=== PATIENT | male | born 1975 | race Caucasian/White ===

== ENCOUNTER 2018-04-18 17:16 | Emergency (ER) | payer OTHER ==
[2018-04-18 17:28] VITALS: BP 136/87; PULSE 86; TEMP 98.3; BMI 26.6
--- NOTE | 2018-04-18 17:33 | PDOC ---
Rapid Medical Evaluation Chief Complaint: Chest Pain Time Seen by Provider: 04/18/18 17:26 Medical Evaluation: Allergies Allergy/AdvReac Type Severity Reaction Status Date / Time No Known Allergies Allergy Verified 04/18/18 17:29 Vital Signs Temp Pulse Resp BP Pulse Ox 98.3 F 86 18 136/87 100 04/18/18 17:24 04/18/18 17:24 04/18/18 17:24 04/18/18 17:24 04/18/18 17:24 04/18/18 17:30 I have performed a brief in-person evaluation of this patient. The patient presents with a chief complaint of: h/o HTN present to [facility] clinic due to feeling mid-sternum CP yesterday and followed-up in clinic today and clinic did EKG which they believe was abnormal and called EMS. Patient report no symptoms today. Denies SOB, dizziness, light headedness, palpitations , N/V, sweats , numbness or tingling sensation Pertinent physical exam findings: A&O x 3. heart :RRR. lungs CTAB. EKG with NSR I have ordered the following: EKG, CBC, CMP, cardiac profile The patient will proceed to the ED for further evaluation Discharge Disposition - Diagnosis Chest pain Qualifiers: Chest pain type: unspecified Qualified Code(s): R07.9 - Chest pain, unspecified - Discharge Dispostion Condition at time of disposition: Stable - Referrals - Patient Instructions - Post Discharge Activity
[2018-04-18 17:55] LABS: BASO % 0.4 % (0-2.0); EOS % 0.2 % (0-4.5); HEMATOCRIT 45.1 % (35.4-49); HEMOGLOBIN 15.3 GM/dL (11.7-16.9); LYMPH % 25.1 % (8-40); MCH 28.3 pg (25.7-33.7); MEAN CELL VOLUME 83.3 fl (80-96); MEAN PLT VOLUME 8.6 fl (7.5-11.1); NEUT % 66.3 % (42.8-82.8); PLATELET COUNT 242 K/MM3 (134-434); RBC 5.42 M/mm3 (4.00-5.60); RDW 13.4 % (11.9-15.9); WHITE BLOOD COUNT 5.4 K/mm3 (4.0-10.0)
[2018-04-18 18:50] LABS: ALBUMIN 4.3 g/dl (3.4-5.0); ALK PHOS 112 U/L (45-117); ANION GAP 8 MMOL/L (8-16); BILIRUBIN,TOTAL 0.9 mg/dL (0.2-1); BLOOD UREA NITROGEN 13 mg/dL (7-18); CALCIUM 9.1 mg/dL (8.5-10.1); CHLORIDE 101 mmol/L (98-107); CO2 27 mmol/L (21-32); CREATININE 1.2 mg/dL (0.55-1.3); GLUCOSE,RANDOM 94 mg/dL (74-106); POTASSIUM 4.1 mmol/L (3.5-5.1); SGOT/AST 11 U/L (15-37); SGPT/ALT 31 U/L (13-61); SODIUM 136 mmol/L (136-145); TOT PROT 8.3 g/dl (6.4-8.2)
--- NOTE | 2018-04-18 19:46 | PDOC ---
History of Present Illness - General History Source: Patient Exam Limitations: No Limitations <Sandie Charles - Last Filed: 04/18/18 19:47> <Paulina Gregory - Last Filed: 04/18/18 21:32> - General Chief Complaint: Chest Pain Stated Complaint: CHEST PAIN Time Seen by Provider: 04/18/18 17:26 - History of Present Illness Initial Comments: 04/18/18 19:48 The patient is a 42 year old male, with a significant past medical history of HTN, HLD, anxiety, and depression, who presents to the emergency department from [facility] for an abnormal EKG. As per patient, he went to the clinic for refills on his medications at which time he noted to his PCP he had an episode of nonradiating right sided chest discomfort last week. Patient received a EKG which noted Afib with RvR, however, upon interpretation of the EKG within the ER the EKG arm leads were reversed. While in the ED, patient notes to be asymptomatic and his EKG notes normal sinus rhythm. He denies any current palpitations, chest pain, or shortness of breath. He denies any recent fevers, chills, headache or dizziness. He denies any recent nausea, vomit, diarrhea or constipation.He denies any recent dysuria, frequency , urgency or hematuria. Allergies: Aspirin (red eyes) Past surgical history: Hernia repair. Social History: Smoker (2 cigarettes per day). Familial History: Paternal secondary to heart issues. Primary Care Physician: Dr. Joanna Miles (Sandie Charles) Past History <Sandie Charles - Last Filed: 04/18/18 19:47> - Past Medical History COPD: No HTN: Yes - Surgical History Abdominal Surgery: Yes (hernia repair) - Suicide/Smoking/Psychosocial Hx Smoking History: Unknown if ever smoked <Paulina Gregory - Last Filed: 04/18/18 21:32> - Past Medical History Allergies/Adverse Reactions: Allergies Allergy/AdvReac Type Severity Reaction Status Date / Time No Known Allergies Allergy Verified 04/18/18 17:29 Home Medications: Ambulatory Orders Amlodipine Besylate [Norvasc -] 10 mg PO DAILY 04/18/18 Escitalopram Oxalate [Lexapro -] 5 mg PO DAILY 04/18/18 Losartan 50Mg/Hctz 12.5MG [Hyzaar -] 1 tab PO DAILY 04/18/18 Review of Systems - Review of Systems Able to Perform ROS?: Yes All Other Systems: Reviewed and Negative <Sandie Charles - Last Filed: 04/18/18 19:47> <Paulina Gregory - Last Filed: 04/18/18 21:32> - Review of Systems Comments:: 04/18/18 19:48 CONSTITUTIONAL: Absent: fever, chills, diaphoresis, generalized weakness, malaise, loss of appetite HEENT: Absent: rhinorrhea, nasal congestion, throat pain, throat swelling, difficulty swallowing, mouth swelling, ear pain, eye pain, visual Changes CARDIOVASCULAR: Absent: chest pain, syncope, palpitations, irregular heart rate, lightheadedness , peripheral edema RESPIRATORY: Absent: cough, shortness of breath, dyspnea with exertion, orthopnea, wheezing, stridor, hemoptysis GASTROINTESTINAL: Absent: abdominal pain, abdominal distension, nausea, vomiting, diarrhea, constipation, melena, hematochezia GENITOURINARY: Absent: dysuria, frequency, urgency, hesitancy, hematuria, flank pain, genital pain MUSCULOSKELETAL: Absent: myalgia, arthralgia, joint swelling SKIN: Absent: rash, itching, pallor HEMATOLOGIC/IMMUNOLOGIC: Absent: easy bleeding, easy bruising, lymphadenopathy, frequent infections ENDOCRINE: Absent: unexplained weight gain, unexplained weight loss, heat intolerance, cold intolerance NEUROLOGIC: Absent: headache, focal weakness or paresthesias, dizziness, unsteady gait, seizure, mental status changes, bladder or bowel incontinence PSYCHIATRIC: Absent: anxiety, depression, suicidal or homicidal ideation, hallucinations. (Sandie Charles) *Physical Exam <Sandie Charles - Last Filed: 04/18/18 19:47> <Paulina Gregory - Last Filed: 04/18/18 21:32> - Vital Signs Last Vital Signs Temp Pulse Resp BP Pulse Ox 98.3 F 86 18 136/87 100 04/18/18 17:24 04/18/18 17:24 04/18/18 17:24 04/18/18 17:24 04/18/18 17:24 - Physical Exam Comments: 04/18/18 19:55 GENERAL: Well developed, well nourished. Awake and alert. No acute distress. HEENT: Normocephalic, atraumatic. PERRLA, EOMI. No conjunctival pallor. Sclera are non- icteric. Moist mucous membranes. Oropharynx is clear. NECK: Supple. Full ROM. No JVD. Carotid pulses 2+ and symmetric, without bruits. No thyromegaly. No lymphadenopathy. CARDIOVASCULAR: Regular rate and rhythm. No murmurs, rubs, or gallops. Distal pulses are 2+ and symmetric. PULMONARY: No evidence of respiratory distress. Lungs clear to auscultation bilaterally. No wheezing, rales or rhonchi. ABDOMINAL: Soft. Non-tender. Non-distended. No rebound or guarding. No organomegaly. Normoactive bowel sounds. MUSCULOSKELETAL Normal range of motion at all joints. No bony deformities or tenderness. No CVA tenderness. EXTREMITIES: No cyanosis. No clubbing. No edema. No calf tenderness. SKIN: Warm and dry. Normal capillary refill. No rashes. No jaundice. NEUROLOGICAL: Alert, awake, appropriate. Cranial nerves 2-12 intact. No deficits to light touch and temperature in face, upper extremities and lower extremities. No motor deficits in the in face, upper extremities and lower extremities. Normoreflexic in the upper and lower extremities. Normal speech. Toes are down- going bilaterally. Gait is normal without ataxia. PSYCHIATRIC: Cooperative. Good eye contact. Appropriate mood and affect. (Sandie Charles) - Procedure Monitoring Vital Signs: Procedure Monitoring Vital Signs Temperature 98.3 F 04/18/18 17:24 Pulse Rate 86 04/18/18 17:24 Respiratory Rate 18 04/18/18 17:24 Blood Pressure 136/87 04/18/18 17:24 O2 Sat by Pulse Oximetry (%) 100 04/18/18 17:24 ED Treatment Course - LABORATORY CBC & Chemistry Diagram: 04/18/18 17:37 04/18/18 17:37 <Sandie Charles - Last Filed: 04/18/18 19:47> - LABORATORY CBC & Chemistry Diagram: 04/18/18 17:37 04/18/18 17:37 <Paulina Gregory - Last Filed: 04/18/18 21:32> - ADDITIONAL ORDERS Additional order review: Laboratory Results 04/18/18 04/18/18 20:30 17:37 Sodium 136 Potassium 4.1 Chloride 101 Carbon Dioxide 27 Anion Gap 8 BUN 13 Creatinine 1.2 Creat Clearance w eGFR > 60 Random Glucose 94 Calcium 9.1 Total Bilirubin 0.9 AST 11 L ALT 31 Alkaline Phosphatase 112 Creatine Kinase 102 100 Troponin I < 0.02 < 0.02 Total Protein 8.3 H Albumin 4.3 04/18/18 17:37 RBC 5.42 MCV 83.3 MCHC 34.0 RDW 13.4 MPV 8.6 Neutrophils % 66.3 Lymphocytes % 25.1 Monocytes % 8.0 Eosinophils % 0.2 Basophils % 0.4 Medical Decision Making <Sandie Charles - Last Filed: 04/18/18 19:47> <Paulina Gregory - Last Filed: 04/18/18 21:32> - Medical Decision Making 04/18/18 21:29 42 yo male sent from clinic at [address] [place] [address] for abnormal ekg that showed afib but it was not afib just poor baseline and lead placement repeat ekg was normal sinus rhythm pt was kept for 2 consecutive troponins which were negative labs unremarkable pt discharged home (Paulina Gregory) *DC/Admit/Observation/Transfer <Sandie Charles - Last Filed: 04/18/18 19:47> <Paulina Gregory - Last Filed: 04/18/18 21:32> Diagnosis at time of Disposition: Chest pain Qualifiers: Chest pain type: unspecified Qualified Code(s): R07.9 - Chest pain, unspecified - Discharge Dispostion Disposition: HOME Condition at time of disposition: Stable - Referrals Referrals: Joanna Miles [Primary Care Provider] - - Patient Instructions Printed Discharge Instructions: DI for Atypical Chest Pain Additional Instructions: please followup with your regular physician return for any worsening symptoms Print Language: ESTONIAN - Post Discharge Activity - Attestations Scribe Attestion: 04/18/18 19:55 Documentation prepared by Sandie Charles, acting as medical assistant for Paulina Gregory MD. (Sandie Charles)
--- NOTE | 2018-04-19 12:39 | EKG ---
Test Reason : Blood Pressure : / mmHG Vent. Rate : 071 BPM Atrial Rate : 071 BPM P-R Int : 142 ms QRS Dur : 102 ms QT Int : 380 ms P-R-T Axes : 031 -36 050 degrees QTc Int : 412 ms NORMAL SINUS RHYTHM LEFT AXIS DEVIATION NONSPECIFIC T WAVE ABNORMALITY ABNORMAL ECG NO PREVIOUS ECGS AVAILABLE Confirmed by ROOSEVELT WILKERSON, MUKUND ([id number]) on 04/19/2018 12:39:29 PM Referred By: Confirmed By:MUKUND ALBERT MD
== END 2018-04-18 21:30 | disposition home or self-care (01) ==
LOC: SUPCPDRO 17:16 → JER 17:16
DX: R07.9 Chest pain, unspecified (principal); I10 Essential (primary) hypertension; E78.00 Pure hypercholesterolemia, unspecified; F41.8 Other specified anxiety disorders; F32.9 Major depressive disorder, single episode, unspecified
CPT/HCPCS: 36415; 80053; 82550; 84484; 85025; 93005; 93010; 99284-25